=== PATIENT | male | born 1975 | race Caucasian/White ===

== ENCOUNTER 2017-06-20 09:27 | Emergency (ER) | payer BC ==
[~2017-06-20] VITALS: Ht 167.6 cm; Wt 120.2 kg
[2017-06-20] MEDS ORDERED: 'PARAFON FORTE500 M1 PO (09:45)
[2017-06-20] MEDS ORDERED: NAPROSYN500 MG PO (09:45)
== END 2017-06-20 11:29 | disposition home or self-care (01) ==
LOC: ED 09:27
DX: M25.552 Pain in left hip (principal); R03.0 Elevated blood-pressure reading, without diagnosis of hypertension